=== PATIENT | male | born 1955 | race Caucasian/White ===

== ENCOUNTER 2016-08-06 14:21 | Inpatient (IN) | payer OTHER ==
[~2016-08-06 14:21] MED LIST: FLOMAX0.4 MG PO; MYSOLINE50 MG PO; NICODERM CQ1 EAC1 TD; NICOTINE PATCH1 EAC1 TOP; PRINIVIL10 MG PO; REQUIP0.5 MG PO; ZOLOFT100 MG PO; [UNRECOGNIZED DRUG - OTHER] TD
[2016-08-06 19:57] LABS: BASOPHIL 0.6 % (0-2); EOSINOPHIL 2.7 % (0-5); HCT 19.4 % (42.0-52.0); LYMPHOCYTE 30.8 % (15-48); MCV 87.8 fL (78.0-100.0); MPV 9.8 fL (6.0-9.5); NEUTROPHIL 57.9 % (41-80); PLT 249 K/uL (150-400); RBC 2.21 M/uL (4.70-6.00); RDW 13.9 % (11.5-14.0); WBC 6.6 K/uL (4.0-10.5)
[2016-08-06 19:59] LABS: BILIRUBIN NEGATIVE (NEGATIVE); BLOOD NEGATIVE Ery/uL (NEGATIVE); CLARITY CLEAR (CLEAR); COLOR YELLOW (YELLOW); GLUCOSE (U) NORMAL (NORMAL); KETONE (U) NEGATIVE (NEGATIVE); LEUKOCYTES NEGATIVE Leu/uL (NEGATIVE); NITRITE NEGATIVE (NEGATIVE); PROTEIN NEGATIVE (NEGATIVE); UROBILINOGEN 0.2 mg/dL (0.2-1.0)
[2016-08-06 19:59] LABS: HGB 6.4 g/dl (13.2-18.0)
[2016-08-06 20:13] LABS: CREATININE 1.2 mg/dL (0.7-1.2); POTASSIUM 4.3 mmol/L (3.5-5.1)
[2016-08-06 21:18] LABS: INR 1.01 (0.9-1.2); PROTHROMBIN TIME 12.9 SECONDS (11.7-14.0); PTT 28.7 SECONDS (23.2-31.4)
[2016-08-07 07:06] LABS: BASOPHIL 0.5 % (0-2); BASOPHIL NO PRINT 0.5 % (0-2); EOSINOPHIL 3.4 % (0-5); EOSINOPHIL NO PRINT 3.4 % (0-5); HCT 23.7 % (42.0-52.0); HGB 7.8 g/dL (13.2-18.0); HGB 7.8 g/dl (13.2-18.0); LYMPHOCYTE 24.5 % (15-48); LYMPHOCYTE NO PRINT 24.5 % (15-48); MCH 29.4 pg (25.0-31.0); MCH NO PRINT 29.4 pg (25.0-31.0); MCHC 32.9 g/dL (32.0-36.0); MCHC NO PRINT 32.9 g/dL (32.0-36.0); MCV 89.4 fL (78.0-100.0); MCV NO PRINT 89.4 fL (78.0-100.0); MONOCYTE 7.4 % (0-12); MONOCYTE NO PRINT 7.4 % (0-12); NEUTROPHIL 64.2 % (41-80); NEUTROPHIL NO PRINT 64.2 % (41-80); PLT 231 K/uL (150-400); PLT NO PRINT 231 K/uL (150-400); RBC 2.65 M/uL (4.70-6.00); RBC NO PRINT 2.65 M/uL (4.70-6.00); RDW 14.1 % (11.5-14.0); RDW NO PRINT 14.1 % (11.5-14.0); WBC 6.5 K/uL (4.0-10.5); WBC NO PRINT 6.5 K/uL (4.0-10.5)
[2016-08-07 07:36] LABS: POTASSIUM 4.5 mmol/L (3.5-5.1)
[2016-08-07 21:35] LABS: BASOPHIL NO PRINT 0.4 % (0-2); EOSINOPHIL NO PRINT 3.5 % (0-5); HCT 31.2 % (42.0-52.0); HGB 10.5 g/dL (13.2-18.0); LYMPHOCYTE NO PRINT 25.9 % (15-48); MCH NO PRINT 29.6 pg (25.0-31.0); MCHC NO PRINT 33.7 g/dL (32.0-36.0); MCV NO PRINT 87.9 fL (78.0-100.0); MPV NO PRINT 9.4 fL (6.0-9.5); NEUTROPHIL NO PRINT 61.2 % (41-80); PLT NO PRINT 251 K/uL (150-400); RBC NO PRINT 3.55 M/uL (4.70-6.00); RDW NO PRINT 14.6 % (11.5-14.0); WBC NO PRINT 7.5 K/uL (4.0-10.5)
[2016-08-08 05:04] LABS: BASOPHIL 0.4 % (0-2); EOSINOPHIL 2.8 % (0-5); HCT 29.3 % (42.0-52.0); HGB 9.7 g/dl (13.2-18.0); LYMPHOCYTE 23.1 % (15-48); MCHC 33.1 g/dL (32.0-36.0); MCV 87.7 fL (78.0-100.0); MONOCYTE 9.2 % (0-12); MPV 9.1 fL (6.0-9.5); NEUTROPHIL 64.5 % (41-80); PLT 232 K/uL (150-400); RBC 3.34 M/uL (4.70-6.00); RDW 14.5 % (11.5-14.0); WBC 7.1 K/uL (4.0-10.5)
[2016-08-08 05:19] LABS: ALBUMIN 3.5 g/dL (3.4-4.8); BILIRUBIN - TOTAL 0.4 mg/dL (0.1-1.0); MAGNESIUM 1.83 mg/dL (1.40-2.10); TOTAL PROTEIN 5.5 g/dL (6.4-8.3)
[2016-08-08 09:54] LABS: BASOPHIL NO PRINT 0.4 % (0-2); EOSINOPHIL NO PRINT 1.8 % (0-5); HCT 29.7 % (42.0-52.0); LYMPHOCYTE NO PRINT 20.9 % (15-48); MCH NO PRINT 29.5 pg (25.0-31.0); MCHC NO PRINT 33.7 g/dL (32.0-36.0); MCV NO PRINT 87.6 fL (78.0-100.0); MPV NO PRINT 9.1 fL (6.0-9.5); NEUTROPHIL NO PRINT 69.9 % (41-80); PLT NO PRINT 239 K/uL (150-400); RBC NO PRINT 3.39 M/uL (4.70-6.00); RDW NO PRINT 14.2 % (11.5-14.0); WBC NO PRINT 5.6 K/uL (4.0-10.5)
[2016-08-08 16:07] LABS: BASOPHIL NO PRINT 0.3 % (0-2); HCT 29.6 % (42.0-52.0); LYMPHOCYTE NO PRINT 25.8 % (15-48); MCH NO PRINT 29.6 pg (25.0-31.0); MCHC NO PRINT 33.8 g/dL (32.0-36.0); MCV NO PRINT 87.6 fL (78.0-100.0); MONOCYTE NO PRINT 9.6 % (0-12); MPV NO PRINT 9.1 fL (6.0-9.5); NEUTROPHIL NO PRINT 62.3 % (41-80); PLT NO PRINT 236 K/uL (150-400); RBC NO PRINT 3.38 M/uL (4.70-6.00); RDW NO PRINT 14.3 % (11.5-14.0); WBC NO PRINT 6.4 K/uL (4.0-10.5)
[2016-08-09 05:10] LABS: HCT 28.6 % (42.0-52.0); HGB 9.4 g/dl (13.2-18.0); MCH 28.8 pg (25.0-31.0); MCHC 32.9 g/dL (32.0-36.0); MCV 87.7 fL (78.0-100.0); MPV 8.6 fL (6.0-9.5); RBC 3.26 M/uL (4.70-6.00); RDW 14.1 % (11.5-14.0); WBC 6.3 K/uL (4.0-10.5)
[2016-08-09 05:25] LABS: CREATININE 0.9 mg/dL (0.7-1.2); MAGNESIUM 1.81 mg/dL (1.40-2.10)
[2016-08-10 04:04] LABS: HCT 28.5 % (42.0-52.0); HGB 9.4 g/dl (13.2-18.0); MCH 29.1 pg (25.0-31.0); MCV 88.2 fL (78.0-100.0); MPV 9.3 fL (6.0-9.5); RBC 3.23 M/uL (4.70-6.00); RDW 14.1 % (11.5-14.0); WBC 5.3 K/uL (4.0-10.5)
[2016-08-10] MEDS ORDERED: PROTONIX 40MG T40 MG PO (12:52)
[2016-08-10] MEDS ORDERED: LAMICTAL100 MG PO (12:52)
[2016-08-10] MEDS ORDERED: AMOXICILLIN500 MG PO (12:53)
[2016-08-10] MEDS ORDERED: SINGULAIR10 MG PO (12:53)
[2016-08-10] MEDS ORDERED: BIAXIN500 MG PO (12:54)
== END 2016-08-10 10:07 | disposition home or self-care (01) | DRG 374 ==
LOC: FER 14:21 → FMS 20:50
PROVIDERS: Emergency Medicine; Internal Medicine; Nurse Practitioner Family; Surgery; ADMIT Internal Medicine
PROC: 30233N1 Transfusion of Nonautologous Red Blood Cells into Peripheral Vein, Percutaneous Approach (ICD-10-PCS; 2016-08-07)
PROC: 0DB68ZX Excision of Stomach, Via Natural or Artificial Opening Endoscopic, Diagnostic (ICD-10-PCS; principal; 2016-08-09 07:00)
PROC: 0DJD8ZZ Inspection of Lower Intestinal Tract, Via Natural or Artificial Opening Endoscopic (ICD-10-PCS; 2016-08-09 07:00)
DX: C16.3 Malignant neoplasm of pyloric antrum (principal); K25.4 Chronic or unspecified gastric ulcer with hemorrhage; B19.10 Unspecified viral hepatitis B without hepatic coma; N18.3 Chronic kidney disease, stage 3 (moderate); D62 Acute posthemorrhagic anemia; F31.9 Bipolar disorder, unspecified; F10.10 Alcohol abuse, uncomplicated; F19.10 Other psychoactive substance abuse, uncomplicated; J45.909 Unspecified asthma, uncomplicated; F17.290 Nicotine dependence, other tobacco product, uncomplicated; N40.0 Benign prostatic hyperplasia without lower urinary tract symptoms; G25.0 Essential tremor; Z82.3 Family history of stroke; Z82.49 Family history of ischemic heart disease and other diseases of the circulatory system
CPT/HCPCS: 36415; 36430; 80048; 80053; 81003; 83735; 85014; 85018; 85025; 85610; 85730; 86850; 86900; 86901; 86922; 88305; 88312; 88313; 88341; 88342; C9113; J1940; J2704; J3411; P9016

== ENCOUNTER → 2016-09-17 | Day surgery (SDC) | payer OTHER ==
[~2016-09-17] MED LIST changes: +AMOXICILLIN500 MG PO; +BIAXIN500 MG PO; +LAMICTAL100 MG PO; +PROTONIX 40MG T40 MG PO; +SINGULAIR10 MG PO
== END | disposition home or self-care (01) ==
LOC: FAS 08:20
DX: C16.9 Malignant neoplasm of stomach, unspecified (principal); I10 Essential (primary) hypertension; J44.9 Chronic obstructive pulmonary disease, unspecified; G47.30 Sleep apnea, unspecified; K21.9 Gastro-esophageal reflux disease without esophagitis; B19.10 Unspecified viral hepatitis B without hepatic coma; M19.90 Unspecified osteoarthritis, unspecified site; F17.210 Nicotine dependence, cigarettes, uncomplicated; J30.9 Allergic rhinitis, unspecified; D50.0 Iron deficiency anemia secondary to blood loss (chronic); F41.9 Anxiety disorder, unspecified; F32.9 Major depressive disorder, single episode, unspecified; K25.9 Gastric ulcer, unspecified as acute or chronic, without hemorrhage or perforation; M10.9 Gout, unspecified; K58.9 Irritable bowel syndrome, unspecified; N42.9 Disorder of prostate, unspecified; Z81.1 Family history of alcohol abuse and dependence; Z81.8 Family history of other mental and behavioral disorders; Z82.49 Family history of ischemic heart disease and other diseases of the circulatory system; Z82.61 Family history of arthritis; Z83.42 Family history of familial hypercholesterolemia; Z83.2 Family history of diseases of the blood and blood-forming organs and certain disorders involving the immune mechanism; Z79.899 Other long term (current) drug therapy; Z90.49 Acquired absence of other specified parts of digestive tract; Z90.89 Acquired absence of other organs; Z98.890 Other specified postprocedural states; Z98.49 Cataract extraction status, unspecified eye
CPT/HCPCS: 71010; 76000; C1788; J0690; J1644; J2704; J3010